=== PATIENT | female | born 1965 | race Caucasian/White ===

== ENCOUNTER 2021-06-10 14:43 | Inpatient (IN) ==
[2021-06-10] MEDS ORDERED: cefTRIAXone 2,000 MG in 0.9 % Sodium Chloride Mini Bag 100 ML IVPB ONE (16:27)
[2021-06-10] MEDS ORDERED: Ipratropium/Albuterol Neb 3 ML IH ONE (16:29)
[2021-06-10 16:48] LABS: Hemoglobin 11.8 g/dL (11.5-15.4); Immature Granulocytes % 0.4 % (0-4); Monocytes % 7.3 %
[2021-06-10 16:49] LABS: Basophils # 0.1 K/mcL (0.0-0.2); Basophils % 0.6 %; Eosinophils % 0.3 %; Hematocrit 43.5 % (35.3-44.9); Lymphocytes # 1.4 K/mcL (0.6-4.6); Lymphocytes % 14.9 %; Mean Corpuscular HGB Conc 27.1 g/dL (31.6-35.5); Mean Corpuscular Hemoglobin 22.5 pg (28.0-33.3); Mean Corpuscular Volume 82.9 fL (83.0-100.0); Mean Platelet Volume 11.6 fL (9.4-12.4); Monocytes # 0.7 K/mcL (0.0-1.3); Neutrophils # 7.1 K/mcL (1.6-8.9); Platelet Count 209 K/mcL (140-400); Red Blood Count 5.25 M/mcL (3.82-4.97); Red Cell Distribution Width 17.2 % (11.5-14.5); Segmented Neutrophils % 76.5 %; White Blood Count 9.3 K/mcL (4.3-11.1)
[2021-06-10 17:28] LABS: Hypochromasia Present (Not Present); Platelet Estimate Normal (Normal)
[2021-06-10 17:30] LABS: Alanine Aminotransferase 19 Units/L (7-52); Albumin 3.9 g/dL (3.5-5.7); Albumin/Globulin Ratio 1.2 (1.1-2.2); Alkaline Phosphatase 88 Units/L (34-104); Aspartate Amino Transferase 21 Units/L (13-39); BUN/Creatinine Ratio 10 (6-26); Bilirubin,Total 1.1 mg/dL (0.3-1.0); Blood Urea Nitrogen 9 mg/dL (6-20); C-Reactive Protein 12 mg/L (Less than 10); Calcium 9.1 mg/dL (8.6-10.3); Carbon Dioxide 34 mEq/L (23-29); Chloride 91 mEq/L (98-107); Globulin 3.2 g/dL (2.4-3.5); Glucose 113 mg/dL (70-105); Osmolality,Calculated 279 (280-300); Potassium 3.7 mEq/L (3.5-5.1); Sodium 135 mEq/L (136-145); Total Protein 7.1 g/dL (6.4-8.9); Troponin I 0.06 ng/mL (< 0.04); eGFR For African Americans > 60 (> 60); eGFR For Non-African Americans > 60 (> 60)
[2021-06-10] MEDS ORDERED: methylPREDNISolone 125 MG/2 ML VIAL IVP ONE (18:13)
[2021-06-10 18:55] LABS: ABG Base Excess 9 mEq/L (-2 to 3); ABG HCO3 37 mEq/L (21-27); ABG Oxygen Saturation 96 % (95-98); ABG PCO2 66 mmHg (35-45); ABG PH 7.36 pH Units (7.32-7.45); ABG PO2 89 mmHg (85-104); ABG TCO2 39 mEq/L (20-26)
[2021-06-10 19:10] LABS: Influenza A PCR Negative (Negative); Influenza B PCR Negative (Negative); Resp. Syncytial Virus PCR Negative (Negative)
[2021-06-10 19:12] LABS: SARS-CoV-2 by PCR (In House) Negative (Negative)
[2021-06-10] MEDS ORDERED: Naloxone 0.4 MG/ML INJ IVP PRN (19:29)
[2021-06-10] MEDS ORDERED: Melatonin 3 MG TABLET PO PRN (19:29)
[2021-06-10] MEDS ORDERED: Acetaminophen 325 MG TABLET PO PRN (19:29)
[2021-06-10] MEDS ORDERED: Ondansetron 4 MG/2 ML VIAL IVP PRN (19:29)
[2021-06-10] MEDS ORDERED: *HR* LORazepam 2 MG/ML VIAL IVP PRN ×3 (19:55)
[2021-06-10] MEDS ORDERED: Azithromycin 500 MG in 0.9 % Sodium Chloride 250 ML IVPB SCH (20:00)
[2021-06-10] MEDS: Ipratropium/Albuterol Neb 3 ML IH SCH ×2 (20:32→23:58)
[2021-06-10] MEDS ORDERED: Isovue-370 500 ML BOTTLE IVP ONE (21:55)
[2021-06-10] MEDS ORDERED: Perflutren Lipid Microsphere 1.3 ML in 0.9 % Sodium Chloride 8.7 ML IVP PRN (22:20)
[2021-06-10] MEDS ORDERED: Vancomycin 1,500 MG/265 ML IV.SOLN IVPB ONE (23:00)
[2021-06-10] MEDS ORDERED: *HR* Heparin 5,000 UNIT/ML VIAL IVP PRN ×2 (23:03)
[2021-06-10] MEDS ORDERED: *HR* Heparin 5,000 UNIT/ML VIAL IVP ONE (23:03)
[2021-06-10] MEDS ORDERED: Heparin 25,000UNIT/250ML 1/2NS 25,000 UNIT/250 ML IV.SOLN IVC SCH (23:15)
[2021-06-10] MEDS: QUEtiapine Fumarate 25 MG TABLET PO SCH (23:42)
[2021-06-11 01:57] LABS: Hematocrit 40.5 % (35.3-44.9); Hemoglobin 11.4 g/dL (11.5-15.4); Mean Corpuscular HGB Conc 28.1 g/dL (31.6-35.5); Mean Corpuscular Volume 81.8 fL (83.0-100.0); Mean Platelet Volume 11.6 fL (9.4-12.4); Platelet Count 191 K/mcL (140-400); Red Blood Count 4.95 M/mcL (3.82-4.97); White Blood Count 9.9 K/mcL (4.3-11.1)
[2021-06-11 02:11] LABS: Heparin anti-factor XA UFH < 0.04 IU/mL (0.30-0.70); INR 1.4; Prothrombin Time 15.3 Seconds (9.4-12.1)
[2021-06-11 02:12] LABS: BUN/Creatinine Ratio 10 (6-26); Blood Urea Nitrogen 8 mg/dL (6-20); Calcium 8.6 mg/dL (8.6-10.3); Carbon Dioxide 33 mEq/L (23-29); Chloride 94 mEq/L (98-107); Glucose 203 mg/dL (70-105); Osmolality,Calculated 282 (280-300); Potassium 4.1 mEq/L (3.5-5.1); Sodium 134 mEq/L (136-145); eGFR For African Americans > 60 (> 60); eGFR For Non-African Americans > 60 (> 60)
[2021-06-11 02:13] LABS: Activated Partial Thrombo Time 26.9 Seconds (26.0-36.0)
[2021-06-11] MEDS: MethylPREDNISolone 40 MG/ML VIAL IVP SCH ×4 (03:54→17:18)
[2021-06-11] MEDS: Ipratropium/Albuterol Neb 3 ML IH SCH ×6 (03:55→23:43)
[2021-06-11] MEDS ORDERED: Azithromycin 500 MG in 0.9 % Sodium Chloride 250 ML IVPB SCH (07:30)
[2021-06-11] MEDS: Thiamine (B-1) 100 MG TABLET PO SCH (08:58)
[2021-06-11] MEDS: Folic Acid 1 MG TABLET PO SCH (08:58)
[2021-06-11] MEDS: BuPROPion XL (24 HR) 150 MG TABLET PO SCH (08:58)
[2021-06-11] MEDS: VILAZODONE HCL 20 MG PO SCH (08:58)
[2021-06-11] MEDS: Vitamin B Complex/Vit C/Vit E 1 EACH TABLET PO SCH (08:58)
[2021-06-11] MEDS ORDERED: BuPROPion XL (24 HR) 150 MG TABLET PO SCH (09:00)
[2021-06-11] MEDS ORDERED: Perflutren Lipid Microsphere 1.3 ML in 0.9 % Sodium Chloride 8.7 ML IVP PRN (09:17)
[2021-06-11] MEDS: Doxycycline 100 MG in 0.9 % Sodium Chloride Mini Bag 100 ML IVPB SCH (13:11)
[2021-06-11] MEDS: *HR* Rivaroxaban 15 MG TABLET PO SCH (13:12)
[2021-06-11] MEDS: cefTRIAXone 1,000 MG in 0.9 % Sodium Chloride 10 ML IVP SCH (13:12)
[2021-06-11] MEDS: ALPRAZolam 0.5 MG TABLET PO PRN (13:12)
[2021-06-11] MEDS: Nicotine 21 MG PATCH.TD24 TD SCH (17:18)
[2021-06-11] MEDS: QUEtiapine Fumarate 25 MG TABLET PO SCH (20:15)
[2021-06-12] MEDS: Doxycycline 100 MG in 0.9 % Sodium Chloride Mini Bag 100 ML IVPB SCH ×2 (00:43→11:36)
[2021-06-12] MEDS: MethylPREDNISolone 40 MG/ML VIAL IVP SCH ×4 (00:44→17:04)
[2021-06-12] MEDS: Ipratropium/Albuterol Neb 3 ML IH SCH ×5 (04:15→20:39)
[2021-06-12 06:06] LABS: Basophils % 0.1 %
[2021-06-12 06:08] LABS: Hematocrit 41.3 % (35.3-44.9); Hemoglobin 11.1 g/dL (11.5-15.4); Immature Granulocytes % 1.1 % (0-4); Lymphocytes # 0.6 K/mcL (0.6-4.6); Lymphocytes % 3.4 %; Mean Corpuscular HGB Conc 26.9 g/dL (31.6-35.5); Mean Corpuscular Hemoglobin 22.9 pg (28.0-33.3); Mean Corpuscular Volume 85.3 fL (83.0-100.0); Mean Platelet Volume 11.8 fL (9.4-12.4); Monocytes # 0.2 K/mcL (0.0-1.3); Neutrophils # 16.8 K/mcL (1.6-8.9); Platelet Count 210 K/mcL (140-400); Red Blood Count 4.84 M/mcL (3.82-4.97); Red Cell Distribution Width 17.1 % (11.5-14.5); Segmented Neutrophils % 94.4 %; White Blood Count 17.8 K/mcL (4.3-11.1)
[2021-06-12 06:29] LABS: BUN/Creatinine Ratio 12 (6-26); Blood Urea Nitrogen 11 mg/dL (6-20); Calcium 8.9 mg/dL (8.6-10.3); Carbon Dioxide 36 mEq/L (23-29); Chloride 95 mEq/L (98-107); Sodium 140 mEq/L (136-145); eGFR For African Americans > 60 (> 60); eGFR For Non-African Americans > 60 (> 60)
[2021-06-12 08:40] LABS: Glucose 125 mg/dL (70-105); Osmolality,Calculated 291 (280-300)
[2021-06-12] MEDS: Nicotine 21 MG PATCH.TD24 TD SCH (08:57)
[2021-06-12] MEDS: Thiamine (B-1) 100 MG TABLET PO SCH (08:57)
[2021-06-12] MEDS: Folic Acid 1 MG TABLET PO SCH (08:57)
[2021-06-12] MEDS: *HR* Rivaroxaban 15 MG TABLET PO SCH ×2 (08:57→15:46)
[2021-06-12] MEDS: VILAZODONE HCL 20 MG PO SCH (09:01)
[2021-06-12] MEDS: cefTRIAXone 1,000 MG in 0.9 % Sodium Chloride 10 ML IVP SCH (09:01)
[2021-06-12] MEDS: Vitamin B Complex/Vit C/Vit E 1 EACH TABLET PO SCH (09:08)
[2021-06-12] MEDS: BuPROPion XL (24 HR) 150 MG TABLET PO SCH (09:09)
[2021-06-12 09:34] LABS: Anisocytosis 1+ (Not Present); Platelet Estimate Normal (Normal)
[2021-06-12 09:36] LABS: Hypochromasia Present (Not Present)
[2021-06-12 09:37] LABS: Large Platelets Present (Not Present)
[2021-06-12] MEDS ORDERED: Famotidine 20 MG TABLET PO ONE (15:11)
[2021-06-12] MEDS: QUEtiapine Fumarate 25 MG TABLET PO SCH (20:18)
[2021-06-12] MEDS ORDERED: *HR* Metoprolol 5 MG/5 ML VIAL IVP ONE (20:26)
[2021-06-13] MEDS: Ipratropium/Albuterol Neb 3 ML IH SCH ×4 (00:26→11:25)
[2021-06-13] MEDS: Doxycycline 100 MG in 0.9 % Sodium Chloride Mini Bag 100 ML IVPB SCH ×2 (00:38→13:31)
[2021-06-13] MEDS: ALPRAZolam 0.5 MG TABLET PO PRN (02:04)
[2021-06-13] MEDS: MethylPREDNISolone 40 MG/ML VIAL IVP SCH (05:40)
[2021-06-13 06:35] LABS: Basophils % 0.1 %; Monocytes % 4.3 %; Nucleated Red Blood Cells 0.2 /100 WBC (0)
[2021-06-13 06:37] LABS: Hematocrit 38.9 % (35.3-44.9); Hemoglobin 10.4 g/dL (11.5-15.4); Lymphocytes # 1.3 K/mcL (0.6-4.6); Lymphocytes % 6.5 %; Mean Corpuscular HGB Conc 26.7 g/dL (31.6-35.5); Mean Corpuscular Hemoglobin 22.8 pg (28.0-33.3); Mean Corpuscular Volume 85.1 fL (83.0-100.0); Mean Platelet Volume 11.5 fL (9.4-12.4); Monocytes # 0.8 K/mcL (0.0-1.3); Platelet Count 190 K/mcL (140-400); Red Blood Count 4.57 M/mcL (3.82-4.97); Red Cell Distribution Width 17.1 % (11.5-14.5); Segmented Neutrophils % 88.1 %; White Blood Count 19.3 K/mcL (4.3-11.1)
[2021-06-13 06:52] LABS: BUN/Creatinine Ratio 22 (6-26); Blood Urea Nitrogen 17 mg/dL (6-20); Carbon Dioxide 38 mEq/L (23-29); Chloride 95 mEq/L (98-107); Glucose 111 mg/dL (70-105); Osmolality,Calculated 286 (280-300); Potassium 3.8 mEq/L (3.5-5.1); Sodium 137 mEq/L (136-145); eGFR For African Americans > 60 (> 60); eGFR For Non-African Americans > 60 (> 60)
[2021-06-13 07:03] LABS: Anisocytosis 1+ (Not Present); Hypochromasia Present (Not Present); Platelet Estimate Normal (Normal)
[2021-06-13 07:04] LABS: Stomatocytes 3+ (Not Present)
[2021-06-13] MEDS: cefTRIAXone 1,000 MG in 0.9 % Sodium Chloride 10 ML IVP SCH (09:37)
[2021-06-13] MEDS: Vitamin B Complex/Vit C/Vit E 1 EACH TABLET PO SCH (09:39)
[2021-06-13] MEDS: Folic Acid 1 MG TABLET PO SCH (09:39)
[2021-06-13] MEDS: *HR* Rivaroxaban 15 MG TABLET PO SCH (09:39)
[2021-06-13] MEDS: BuPROPion XL (24 HR) 150 MG TABLET PO SCH (09:39)
[2021-06-13] MEDS: Nicotine 21 MG PATCH.TD24 TD SCH (09:39)
[2021-06-13] MEDS: Thiamine (B-1) 100 MG TABLET PO SCH (09:40)
[2021-06-13 10:29] VITALS: BP 148/84; PULSE 93; TEMP 97.8
[2021-06-13 13:38] VITALS: O2SAT 90
== END 2021-06-13 16:04 | disposition home or self-care (01) | DRG 134 ==
LOC: EMEROOARM 14:43 → 3ANU 14:43 → SUATTDRO 18:32 → 3ANU 20:05
PROVIDERS: ADMIT Internal Medicine; ATTEND Student in an Organized Health Care Education/Training Program